=== PATIENT | female | born 1955 | race Caucasian/White ===

== ENCOUNTER 2019-06-27 11:23 | Inpatient (IN) ==
[2019-06-27] MEDS ORDERED: Famotidine 20 MG/2 ML VIAL IVP ONE (11:45)
[2019-06-27] MEDS ORDERED: Gabapentin 300 MG CAPSULE PO ONE (11:46)
[2019-06-27] MEDS ORDERED: Scopolamine Patch 1.5 MG PATCH.TD72 TD ONE (11:46)
[2019-06-27] MEDS ORDERED: *HR* Methadone 10 MG TABLET PO ONE (11:47)
[2019-06-27] MEDS ORDERED: Acetaminophen IV 1,000 MG/100 ML INFUS..BTL IVPB ONE (11:47)
[2019-06-27] MEDS ORDERED: cefOXitin 2,000 MG in Water for inj. (sterile) 20 ML IVP ONE (12:20)
[2019-06-27] MEDS ORDERED: Ringers Solution, Lactated 1,000 ML IVC SCH (12:30)
[2019-06-27] MEDS ORDERED: *HR* Rocuronium Bromide 50 MG/5 ML VIAL ONE (13:09)
[2019-06-27] MEDS ORDERED: Lidocaine -MPF 2% 2 ML VIAL ONE (13:09)
[2019-06-27] MEDS ORDERED: Dexamethasone 4 MG/ML VIAL ONE (13:09)
[2019-06-27] MEDS ORDERED: Ondansetron 4 MG/2 ML VIAL ONE (13:09)
[2019-06-27] MEDS ORDERED: *HR* Succinylcholine 200 MG/10 ML VIAL IVP ONE (13:09)
[2019-06-27] MEDS ORDERED: Neostigmine Methylsulfate 3 MG/3 ML SYRINGE ONE (13:09)
[2019-06-27] MEDS ORDERED: *HR* FentaNYL (PF) 100 MCG/2 ML VIAL ONE (13:10)
[2019-06-27] MEDS ORDERED: *HR* Midazolam HCl 2 MG/2 ML VIAL ONE (13:10)
[2019-06-27] MEDS ORDERED: *HR* Propofol 200 MG/20 ML VIAL IVP ONE (13:11)
[2019-06-27] MEDS ORDERED: *HR* HYDROcodone/Acet 5/325 mg TABLET PO PRN (14:24)
[2019-06-27] MEDS ORDERED: Morphine Sulfate 2 MG/ML SYRINGE IVP PRN (14:24)
[2019-06-27] MEDS ORDERED: *HR* PHENYLEPHRINE 1,000 MCG/10 ML SYRINGE IVP ONE (15:21)
[2019-06-27] MEDS ORDERED: Ondansetron 4 MG/2 ML VIAL IVP ONE (16:52)
[2019-06-27] MEDS ORDERED: *HR* Promethazine 25 MG/ML VIAL IVP PRN (16:52)
[2019-06-27] MEDS ORDERED: Naloxone 0.4 MG/ML INJ IVP PRN (18:05)
[2019-06-27] MEDS: *HR* Heparin 5,000 UNIT/ML VIAL SQ SCH (18:33)
[2019-06-27] MEDS: 0.9 % Sodium Chloride 1,000 ML IVC SCH (18:33)
[2019-06-27] MEDS: Ketorolac 15 MG/ML VIAL IVP SCH (19:09)
[2019-06-27] MEDS ORDERED: Morphine Sulfate Oral CONC 10 MG/0.5 ML ORAL.SYG SL PRN (20:36)
[2019-06-28] MEDS: Ketorolac 15 MG/ML VIAL IVP SCH ×3 (01:08→11:31)
[2019-06-28 04:09] LABS: White Blood Count 10.9 K/mcL (4.3-11.1)
[2019-06-28 04:10] LABS: Basophils % 0.1 %; Hematocrit 39.1 % (35.3-44.9); Hemoglobin 12.5 g/dL (11.5-15.4); Immature Granulocytes % 0.3 % (0-4); Lymphocytes # 0.8 K/mcL (0.6-4.6); Mean Corpuscular Hemoglobin 28.5 pg (28.0-33.3); Mean Corpuscular Volume 89.1 fL (83.0-100.0); Mean Platelet Volume 9.9 fL (9.4-12.4); Monocytes # 0.5 K/mcL (0.0-1.3); Monocytes % 4.1 %; Neutrophils # 9.7 K/mcL (1.6-8.9); Platelet Count 333 K/mcL (140-400); Red Blood Count 4.39 M/mcL (3.82-4.97); Red Cell Distribution Width 12.9 % (11.5-14.5); Segmented Neutrophils % 88.5 %
[2019-06-28 04:29] LABS: BUN/Creatinine Ratio 21 (6-26); Blood Urea Nitrogen 18 mg/dL (8-23); Calcium 8.9 mg/dL (8.6-10.3); Carbon Dioxide 23 mEq/L (23-29); Chloride 106 mEq/L (98-107); Glucose 116 mg/dL (70-105); Osmolality,Calculated 287 (280-300); Potassium 4.1 mEq/L (3.5-5.1); Sodium 137 mEq/L (136-145); eGFR For African Americans > 60 (> 60); eGFR For Non-African Americans > 60 (> 60)
[2019-06-28] MEDS: *HR* Heparin 5,000 UNIT/ML VIAL SQ SCH ×2 (05:12→17:15)
[2019-06-28] MEDS: 0.9 % Sodium Chloride 1,000 ML IVC SCH (07:26)
[2019-06-28] MEDS: BuPROPion SR (12 HR) 150 MG TABLET PO SCH (09:23)
[2019-06-28] MEDS: Acetaminophen 325 MG TABLET PO SCH ×3 (09:24→17:15)
[2019-06-28] MEDS: Patient Taking Own Medication 1 EACH PO SCH (09:25)
[2019-06-28] MEDS: traMADol 50 MG TABLET PO SCH (11:49)
[2019-06-28] MEDS: Methylphenidate HCl 10 MG TABLET PO SCH (13:53)
[2019-06-29] MEDS: Acetaminophen 325 MG TABLET PO SCH ×2 (00:35→05:54)
[2019-06-29] MEDS: *HR* Heparin 5,000 UNIT/ML VIAL SQ SCH (05:55)
[2019-06-29] MEDS: Methylphenidate HCl 10 MG TABLET PO SCH (08:21)
[2019-06-29] MEDS: BuPROPion SR (12 HR) 150 MG TABLET PO SCH (08:21)
[2019-06-29] MEDS: traMADol 50 MG TABLET PO SCH (08:21)
[2019-06-29] MEDS: Patient Taking Own Medication 1 EACH PO SCH (08:22)
[2019-06-29] MEDS ORDERED: FLU Vac QV 19-20 (6Month+)/PF 0.5 ML SYRINGE IM ONE (08:29)
[2019-06-29 09:55] VITALS: BP 138/68
== END 2019-06-29 12:18 | disposition home or self-care (01) | DRG 331 ==
LOC: SAMDAY 11:23 → 3ANU 18:01
PROVIDERS: ADMIT Surgery; ATTEND Surgery